=== PATIENT | male | born 1955 | race Caucasian/White ===

== ENCOUNTER → 2019-01-09 | Outpatient (CLI) | payer BC ==
[~2019-01-09] MED LIST: ASPI-586 PO; ASPI325T32 PO; CEPH-507 PO; CETI10CA PO; HYDR-3876 PO; IBUP200C PO; METAMUCIL POWD283 GM PO; NAPR-689 PO; OXYC-12 PO
--- NOTE | 2019-01-09 13:46 | Diagnostic Imaging Report ---
PROCEDURE: CT head without contrast. TECHNIQUE: Multiple contiguous axial images were obtained through the brain without the use of intravenous contrast. Auto Exposure Controls were utilized during the CT exam to meet ALARA standards for radiation dose reduction. INDICATION: Third nerve palsy and nausea. CT HEAD: CT images of the head were obtained. FINDINGS: Ventricles and sulci are within normal limits for size. There is no intracranial hemorrhage identified. There is no abnormal mass effect or shift of midline structures. IMPRESSION: Unremarkable CT of the head. Dictated by: Dictated on workstation # [id number]
--- NOTE | 2019-01-09 15:11 | Diagnostic Imaging Report ---
PROCEDURE: CT orbit without contrast. TECHNIQUE: Multiple contiguous axial images were obtained through the facial bones without the use of intravenous contrast. Auto Exposure Controls were utilized during the CT exam to meet ALARA standards for radiation dose reduction. INDICATION: Third nerve palsy. FINDINGS: There are no previous CT orbit examinations available for comparison. The CT head exam performed in conjunction with this study failed to show any sign of an acute intracranial abnormality or of an intracranial mass. The globes are symmetrical and within normal limits. The optic nerves and extraocular muscles also appear symmetrical. There is no evidence for retrobulbar mass. The sella is not enlarged. The paranasal sinuses where visualized are generally clear and well aerated. The mastoid air cells are unremarkable as well. IMPRESSION: 1. There is no acute abnormality of the orbits. There is no sign of a mass lesion either. 2. If clinical concern regarding an underlying abnormality persists and further imaging is desired, then MRI will be recommended. Dictated by: Dictated on workstation # [id number]
== END ==
LOC: RAD 12:54
PROVIDERS: ATTEND Optometrist
DX: H49.01 Third [oculomotor] nerve palsy, right eye (principal); H53.2 Diplopia; R11.0 Nausea
CPT/HCPCS: 36415; 70450; 70480; 83036; 85652

== ENCOUNTER 2019-02-21 14:45 | Inpatient (IN) | payer BC, MEDICARE ==
[~2019-02-21] VITALS: Ht 177.8 cm; Wt 84.0 kg
[2019-02-21] MEDS ORDERED: NITROGLYCERIN 0.4 MG SL TABS BTL 25'S SL ONE (14:54)
[2019-02-21] MEDS ORDERED: NITROGLYCERIN 0.4 MG SL TABS BTL 25'S SL PRN (15:00)
--- NOTE | 2019-02-21 15:02 | NUR ---
Pt reports pain is resolved with one nitro.
[2019-02-21] MEDS ORDERED: NS IV 1000 ML 1,000 ML ONE (15:05)
[2019-02-21] MEDS ORDERED: NS IV 1000 ML 1,000 ML IV SCH ×2 (15:06→16:45)
--- NOTE | 2019-02-21 15:06 | ED Chest Pain ---
General Chief Complaint: Chest Pain Stated Complaint: CHEST PAIN Source: patient, spouse Exam Limitations: no limitations History of Present Illness Date Seen by Provider: Feb 21, 2019 Time Seen by Provider: 14:48 Initial Comments Patient presents to ER by private conveyance with chief complaint of 30 minutes prior to arrival he began to experience some chest pain and pressure in his left chest radiating to his left shoulder and down his left arm as she was walking across campus. He has no history of coronary disease. He was told he has borderline cholesterol but does not take antiplatelet hyperlipidemia medications. He follows with Dr. Marta Sanchez. He does not smoke cigarettes use recreational drugs or drink alcohol. She's not had any fevers cough chills sweats nausea vomiting. 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 He does follow with an eye doctor and Dr. Strange has him scheduled next week or so for colonoscopy routine. He denies a history of diabetes or hypertension. He rates the pain about 3 or 4 out of 10 presently. The patient states he had aspirin 325 in his office so he took 2 of them when the pain started. Allergies and Home Medications Allergies Coded Allergies: No Known Drug Allergies (Unverified , 07/13/15) Home Medications Cephalexin 500 Mg Capsule, 500 MG PO BID Prescribed by: OLEG LEBLANC on 07/16/15 1026 Hydrocodone/Acetaminophen 1 Each Tablet, 1-2 TAB PO Q4H PRN for PAIN Prescribed by: OLEG LBELANC on 07/16/15 1026 Psyllium Seed/Aspartame 283 Gm Powder, 1 TSP PO DAILY, (Reported) Patient Home Medication List Home Medication List Reviewed: Yes Review of Systems Review of Systems Constitutional: No chills, No diaphoresis, No fever, No malaise EENTM: No Blurred Vision, No Double Vision Respiratory: Denies Cough, Denies Shortness of Air Cardiovascular: See HPI, Chest Pain; Denies Edema; Lightheadedness; Denies Palpitations, Denies Syncope Gastrointestinal: Denies Abdomen Distended, Denies Abdominal Pain Genitourinary: Denies Burning, Denies Discharge Musculoskeletal: No back pain, No joint pain Skin: No pruritus, No rash Psychiatric/Neurological: Denies Headache, Denies Numbness, Denies Paresthesia All Other Systems Reviewed Negative Unless Noted: Yes Past Cvdugsb-Xsnrpt-Kmumwr Hx Patient Social History Alcohol Use: Occasionally Uses Alcohol Beverage of Choice: Beer Recreational Drug Use: No Smoking Status: Never a Smoker 2nd Hand Smoke Exposure: No Past Medical History Surgeries: Yes (RIGHT INGUINAL HERNIA X2) Respiratory: No Cardiac: Yes High Cholesterol Neurological: No Reproductive Disorders: No Sexually Transmitted Disease: No HIV/AIDS: No Gastrointestinal: No Musculoskeletal: Yes (STRETCHING HELPS BACK PAIN) Chronic Back Pain Endocrine: No Loss of Vision: Bilateral Hearing Impairment: Denies Cancer: No Psychosocial: No Integumentary: No Blood Disorders: No Adverse Reaction/Blood Tranf: No Physical Exam Vital Signs Vital Signs - First Documented 02/21/19 14:48 Temp 36.3 Pulse 93 Resp 6 B/P (MAP) 138/90 (106) Pulse Ox 99 O2 Delivery Room Air Capillary Refill : Less Than 3 Seconds Height, Weight, BMI Height: 5'10.00" Weight: 187lbs. 0.0oz. 84.312122np; 31.11 BMI Method: General Appearance: No Apparent Distress, WD/WN HEENT: PERRL/EOMI, Pharynx Normal, Moist Mucous Membranes Neck: Full Range of Motion, Normal Inspection Respiratory: Chest Non Tender, Lungs Clear, Normal Breath Sounds, No Accessory Muscle Use, No Respiratory Distress Cardiovascular: Regular Rate, Rhythm, No Edema, Normal Peripheral Pulses Gastrointestinal: Normal Bowel Sounds, No Organomegaly, Non Tender, Soft Extremity: Normal Capillary Refill, Normal Inspection, No Pedal Edema Neurologic/Psychiatric: Alert, Oriented x3 Skin: Normal Color, Warm/Dry Progress/Results/Core Measures Results/Orders Lab Results Laboratory Tests Test 02/21/19 14:45 Range/Units White Blood Count 7.0 4.3-11.0 10^3/uL Red Blood Count 4.87 4.35-5.85 10^6/uL Hemoglobin 14.7 13.3-17.7 G/DL Hematocrit 43 40-54 % Mean Corpuscular Volume 88 80-99 FL Mean Corpuscular Hemoglobin 30 25-34 PG Mean Corpuscular Hemoglobin Concent 34 32-36 G/DL Red Cell Distribution Width 13.1 10.0-14.5 % Platelet Count 278 130-400 10^3/uL Mean Platelet Volume 10.2 7.4-10.4 FL Neutrophils (%) (Auto) 61 42-75 % Lymphocytes (%) (Auto) 27 12-44 % Monocytes (%) (Auto) 10 0-12 % Eosinophils (%) (Auto) 2 0-10 % Basophils (%) (Auto) 1 0-10 % Neutrophils # (Auto) 4.3 1.8-7.8 X 10^3 Lymphocytes # (Auto) 1.9 1.0-4.0 X 10^3 Monocytes # (Auto) 0.7 0.0-1.0 X 10^3 Eosinophils # (Auto) 0.1 0.0-0.3 10^3/uL Basophils # (Auto) 0.1 0.0-0.1 10^3/uL Prothrombin Time 13.0 12.2-14.7 SEC INR Comment 1.0 0.8-1.4 Activated Partial Thromboplast Time 31 24-35 SEC Sodium Level 139 135-145 MMOL/L Potassium Level 3.8 3.6-5.0 MMOL/L Chloride Level 103 98-107 MMOL/L Carbon Dioxide Level 25 21-32 MMOL/L Anion Gap 11 5-14 MMOL/L Blood Urea Nitrogen 9 7-18 MG/DL Creatinine 0.98 0.60-1.30 MG/DL Estimat Glomerular Filtration Rate > 60 BUN/Creatinine Ratio 9 Glucose Level 151 H 70-105 MG/DL Calcium Level 9.6 8.5-10.1 MG/DL Corrected Calcium 9.4 8.5-10.1 MG/DL Magnesium Level 1.9 1.6-2.4 MG/DL Total Bilirubin 0.6 0.1-1.0 MG/DL Aspartate Amino Transf (AST/SGOT) 20 5-34 U/L Alanine Aminotransferase (ALT/SGPT) 22 0-55 U/L Alkaline Phosphatase 53 40-136 U/L Myoglobin 153.4 H 10.0-92.0 NG/ML Troponin I 0.359 *H <0.028 NG/ML Total Protein 7.4 6.4-8.2 GM/DL Albumin 4.2 3.2-4.5 GM/DL My Orders Orders - PADILLA MEJIA Continuous Ekg Monitoring (02/21/19 14:46) Ekg Tracing (02/21/19 14:46) Nitroglycerin 0.4 Mg Btl 25's (Nitrostat (02/21/19 14:54) Cbc With Automated Diff (02/21/19 14:59) Magnesium (02/21/19 14:59) Chest 1 View, Ap/Pa Only (02/21/19 14:59) Cardiac Profile 1 (02/21/19 14:59) Comprehensive Metabolic Panel (02/21/19 14:59) Myoglobin Serum (02/21/19 14:59) Protime With Inr (02/21/19 14:59) Partial Thromboplastin Time (02/21/19 14:59) O2 (02/21/19 14:59) Lipid Panel (02/22/19 06:00) Ed Iv/Invasive Line Start (02/21/19 14:59) Nitroglycerin 0.4 Mg Btl 25's (Nitrostat (02/21/19 15:00) Ed Iv/Invasive Line Start (02/21/19 15:06) Ns Iv 1000 Ml (Sodium Chloride 0.9%) (02/21/19 15:06) Ns Iv 1000 Ml (Sodium Chloride 0.9%) (02/21/19 15:05) Medications Given in ED Current Medications Medications Dose Ordered Sig/Marina Route Start Time Stop Time Status Last Admin Dose Admin Nitroglycerin 0.4 mg STK-MED ONCE SL 02/21/19 14:54 02/21/19 14:56 DC 02/21/19 14:57 0.4 MG Vital Signs/I&O 02/21/19 02/21/19 14:48 14:48 Temp 36.3 Pulse 93 Resp 6 B/P (MAP) 138/90 (106) Pulse Ox 99 O2 Delivery Room Air Room Air Progress Progress Note : Time: 15:08 Progress Note Dose of nitroglycerin did take his chest pain away however he also dropped his blood pressure down significantly to 80/60. We'll give him a liter fluids and let them to cover. No EKG changes. He already received 2 aspirin at home. Initial ECG Impression Date: Feb 21, 2019 Initial ECG Impression Time: 14:52 Initial ECG Rate: 92 Initial ECG Rhythm: Normal Sinus Initial ECG Intervals: Normal Initial ECG Impression: Normal Initial ECG Comparisson: No Previous ECG Available Comment No clinically relevant ST elevation or depression. Diagnostic Imaging Diagonstic Imaging: Xray Plain Films/CT/US/NM/MRI: chest (1v) Comments NAME: DANIELLE SIMMS MED REC#: [id number] PT STATUS: REG ER : 1955 PHYSICIAN: PADILLA MEJIA MD ADMIT DATE: 02/21/19/ER Draft POSDate of Exam:02/21/19 CHEST 1 VIEW, AP/PA ONLY PATIENT HISTORY: Chest pain. TECHNIQUE: Single frontal view of the chest. COMPARISON: None. FINDINGS: The lung volumes are normal. No focal consolidation is seen. No large pleural effusion or pneumothorax is seen. The cardiomediastinal silhouette is normal in size and contour. No acute osseous abnormality is seen. IMPRESSION: No acute pulmonary abnormality seen. Dictated on workstation # [id number] Dict: 02/21/19 1523 Trans: 02/21/19 1524 [id number] Interpreted by: ANN PATTEN MD Electronically signed by: Reviewed: Reviewed by Me Departure Communication (Admissions) Time/Spoke to Admitting Phy: 15:48 Discussed lab imaging findings EKG with Dr. Earl and he agrees to observe the patient. Time/Spoke to Consulting Phy: 15:[address] Jimenez and he says he'll come by and see the patient later Tonight or tomorrow. He would like it single dose of Lovenox at this time. Impression Primary Impression: Non-STEMI (non-ST elevated myocardial infarction) Disposition: ADMITTED INPATIENT Condition: Stable Admissions Decision to Admit Reason: Admit from ER (General) Decision to Admit/Date: Feb 21, 2019 Time/Decision to Admit Time: 15:30 Departure-Patient Inst. Referrals: MARTA SANCHEZ MD (PCP/Family) Primary Care Physician PADILLA MEJIA Feb 21, 2019 15:06 POS
[2019-02-21 15:10] LABS: BASOPHILS # (AUTO) 0.1 10^3/uL (0.0-0.1); BASOPHILS % (AUTO) 1 % (0-10); EOSINOPHILS # (AUTO) 0.1 10^3/uL (0.0-0.3); EOSINOPHILS % (AUTO) 2 % (0-10); HEMATOCRIT 43 % (40-54); HEMOGLOBIN 14.7 G/DL (13.3-17.7); LYMPHOCYTES # (AUTO) 1.9 X 10^3 (1.0-4.0); LYMPHOCYTES % (AUTO) 27 % (12-44); MEAN CORPUSCULAR HEMOGLOBIN 30 PG (25-34); MEAN CORPUSCULAR HGB CONC 34 G/DL (32-36); MEAN CORPUSCULAR VOLUME 88 FL (80-99); MEAN PLATELET VOLUME 10.2 FL (7.4-10.4); MONOCYTES # (AUTO) 0.7 X 10^3 (0.0-1.0); MONOCYTES % (AUTO) 10 % (0-12); NEUTROPHILS # (AUTO) 4.3 X 10^3 (1.8-7.8); NEUTROPHILS % (AUTO) 61 % (42-75); PLATELET COUNT 278 10^3/uL (130-400); RED CELL DISTRIBUTION WIDTH 13.1 % (10.0-14.5)
--- NOTE | 2019-02-21 15:25 | Diagnostic Imaging Report ---
PATIENT HISTORY: Chest pain. TECHNIQUE: Single frontal view of the chest. COMPARISON: None. FINDINGS: The lung volumes are normal. No focal consolidation is seen. No large pleural effusion or pneumothorax is seen. The cardiomediastinal silhouette is normal in size and contour. No acute osseous abnormality is seen. IMPRESSION: No acute pulmonary abnormality seen. Dictated by: Dictated on workstation # [id number]
[2019-02-21 15:27] LABS: ALANINE AMINOTRANSFERASE 22 U/L (0-55); ALBUMIN 4.2 GM/DL (3.2-4.5); ALKALINE PHOSPHATASE 53 U/L (40-136); BILIRUBIN,TOTAL 0.6 MG/DL (0.1-1.0); BUN/CREATININE RATIO 9; CALCIUM 9.6 MG/DL (8.5-10.1); CARBON DIOXIDE 25 MMOL/L (21-32); CHLORIDE 103 MMOL/L (98-107); CREATININE SERUM 0.98 MG/DL (0.60-1.30); GFR ESTIMATED > 60; GLUCOSE 151 MG/DL (70-105); MAGNESIUM 1.9 MG/DL (1.6-2.4); POTASSIUM 3.8 MMOL/L (3.6-5.0); SODIUM 139 MMOL/L (135-145); TOTAL PROTEIN 7.4 GM/DL (6.4-8.2)
[2019-02-21] MEDS ORDERED: ENOXAPARIN 100 MG/1 ML (LOVENOX) SYR SC ONE (16:00)
--- NOTE | 2019-02-21 16:44 | Consultation-Cardiology ---
HPI-Cardiology Cardiology Consultation Date of Consultation 02/21/19 Date of Admission Time Seen by Provider: 16:40 Indication: chest pain HPI 63 years old gentleman with no significant past history, had borderline hyperlipidemia, started to have chest pain described it as dull in nature in the left side of his chest radiating to the left arm, took aspirin at home then came to the emergency room, pain relieved with one sublingual nitroglycerin, he is currently laying down in bed, denied any active pain, no similar episodes in the past. No palpitation, no syncope or near syncopal episodes. No claudications. Home Medications & Allergies Allergies: Coded Allergies: No Known Drug Allergies (Unverified , 07/13/15) Home Medication List Reviewed: Yes Take rxjc-jda-wovokbv medications only JQT-Mxobim-Keqqjn Hx Patient Social History Marital Status: Employed/Student: employed Alcohol Use: Occasionally Uses Recreational Drug Use: No Smoking Status: Never a Smoker Former smoker/When Quit: Sep 10, 1969 2nd Hand Smoke Exposure: No Recent Foreign Travel: No Recent Infectious Disease Expo: No Past Medical History No known past medical history Family Medical History Family Medical Hx Noncontributory Review of Systems-General Review of Systems Constitutional: see HPI; No chills, No diaphoresis, No fever, No malaise EENTM: see HPI, no symptoms reported Respiratory: see HPI; No cough, No dyspnea on exertion, No hemoptysis, No orthopnea, No phlegm, No short of breath, No stridor, No wheezing, No other Cardiovascular: see HPI, chest pain; No edema, No Hx of Intervention, No pal pitations, No syncope, No vascular heart diseas, No other Gastrointestinal: no symptoms reported, see HPI Genitourinary: no symptoms reported, see HPI Musculoskeletal: see HPI; No back pain, No joint pain Skin: see HPI; No pruritus, No rash Psychiatric/Neurological: See HPI; Denies Headache, Denies Numbness, Denies Paresthesia All Other Systems Reviewed Negative Unless Noted: Yes Reviewed Test Results Reviewed Test Results Lab Laboratory Tests Test 02/21/19 14:45 Range/Units White Blood Count 7.0 4.3-11.0 10^3/uL Red Blood Count 4.87 4.35-5.85 10^6/uL Hemoglobin 14.7 13.3-17.7 G/DL Hematocrit 43 40-54 % Mean Corpuscular Volume 88 80-99 FL Mean Corpuscular Hemoglobin 30 25-34 PG Mean Corpuscular Hemoglobin Concent 34 32-36 G/DL Red Cell Distribution Width 13.1 10.0-14.5 % Platelet Count 278 130-400 10^3/uL Mean Platelet Volume 10.2 7.4-10.4 FL Neutrophils (%) (Auto) 61 42-75 % Lymphocytes (%) (Auto) 27 12-44 % Monocytes (%) (Auto) 10 0-12 % Eosinophils (%) (Auto) 2 0-10 % Basophils (%) (Auto) 1 0-10 % Neutrophils # (Auto) 4.3 1.8-7.8 X 10^3 Lymphocytes # (Auto) 1.9 1.0-4.0 X 10^3 Monocytes # (Auto) 0.7 0.0-1.0 X 10^3 Eosinophils # (Auto) 0.1 0.0-0.3 10^3/uL Basophils # (Auto) 0.1 0.0-0.1 10^3/uL Prothrombin Time 13.0 12.2-14.7 SEC INR Comment 1.0 0.8-1.4 Activated Partial Thromboplast Time 31 24-35 SEC Sodium Level 139 135-145 MMOL/L Potassium Level 3.8 3.6-5.0 MMOL/L Chloride Level 103 98-107 MMOL/L Carbon Dioxide Level 25 21-32 MMOL/L Anion Gap 11 5-14 MMOL/L Blood Urea Nitrogen 9 7-18 MG/DL Creatinine 0.98 0.60-1.30 MG/DL Estimat Glomerular Filtration Rate > 60 BUN/Creatinine Ratio 9 Glucose Level 151 H 70-105 MG/DL Calcium Level 9.6 8.5-10.1 MG/DL Corrected Calcium 9.4 8.5-10.1 MG/DL Magnesium Level 1.9 1.6-2.4 MG/DL Total Bilirubin 0.6 0.1-1.0 MG/DL Aspartate Amino Transf (AST/SGOT) 20 5-34 U/L Alanine Aminotransferase (ALT/SGPT) 22 0-55 U/L Alkaline Phosphatase 53 40-136 U/L Myoglobin 153.4 H 10.0-92.0 NG/ML Troponin I 0.359 *H <0.028 NG/ML Total Protein 7.4 6.4-8.2 GM/DL Albumin 4.2 3.2-4.5 GM/DL Physical Exam Physical Exam Vital Signs Vital Signs - First Documented 02/21/19 14:48 Temp 36.3 Pulse 93 Resp 6 B/P (MAP) 138/90 (106) Pulse Ox 99 O2 Delivery Room Air Capillary Refill : Less Than 3 Seconds Height, Weight, BMI Height: 5'10.00" Weight: 187lbs. 0.0oz. 84.589870ej; 26.00 BMI Method: General Appearance: No Apparent Distress, WD/WN Eyes: Bilateral Eye Normal Inspection, Bilateral Eye PERRL, Bilateral Eye EOMI HEENT: PERRL/EOMI, Pharynx Normal, Moist Mucous Membranes Neck: Full Range of Motion, Normal Inspection Respiratory: Chest Non Tender, Lungs Clear, Normal Breath Sounds, No Accessory Muscle Use, No Respiratory Distress Cardiovascular: Regular Rate, Rhythm, No Edema, No Gallop, No Murmur, Normal Peripheral Pulses Gastrointestinal: Normal Bowel Sounds, No Organomegaly, Non Tender, Soft Back: Normal Inspection, No CVA Tenderness, No Vertebral Tenderness Extremity: Normal Capillary Refill, Normal Inspection, No Pedal Edema Neurologic/Psychiatric: Alert, Oriented x3 Skin: Normal Color, Warm/Dry Lymphatic: No Adenopathy A/P-Cardiology Admission Diagnosis Chest pain Non-ST elevation myocardial infarction Coronary artery disease Hyperlipidemia Assessment/Plan Chest pain, non-ST elevation myocardial infarction, relieved with one sublingual nitroglycerin, feeling better at this time. I will continue monitoring and start IV fluid, possible cardiac catheterization in the morning Coronary artery disease, mild elevation in troponin, continue to monitor the trend, possible cardiac catheterization Questionable hyperlipidemia I will evaluate lipid profile Hospital course: Patient was monitored, had transient episode of hypotension, second troponin was 27, I decided to proceed with cardiac catheterization which was carried out showing ostial LAD thrombus with severe mid LAD stenosis, involving the ramus intermedius, I discussed the management plan with Dr. Dodson at [facility] who accepted the patient and recommended placement of intra-aortic balloon pump. Patient was started on heparin drip is currently stable, heart rate and blood pressure are stable. I will arrange for the transfer. Final diagnosis Non-ST elevation myocardial infarction Coronary artery disease Hypotension, not in shock Hyperlipidemia LOY SHIRLEY MD Feb 21, 2019 16:44 POS
[2019-02-21 17:30] VITALS: BP 150/98
[2019-02-21] MEDS ORDERED: ONDANSETRON 4 MG/2 ML (SDV) Z0FRAN IV PRN (17:30)
[2019-02-21] MEDS ORDERED: morphine INJ 4 MG/ML 1 ML (VIAL/SYRINGE) IV PRN (17:30)
[2019-02-21] MEDS ORDERED: CATHETER FLUSH 10 ML SYR IV PRN (17:30)
[2019-02-21 19:00] VITALS: BP 136/84
[2019-02-21 20:00] VITALS: BP 137/108
[2019-02-21 22:00] VITALS: BP 101/68
[2019-02-21 23:00] VITALS: BP 83/54
[2019-02-22] VITALS: BP 88/64
[2019-02-22 01:00] VITALS: BP 93/60
--- NOTE | 2019-02-22 01:14 | NUR ---
CONTACTED DR. SHIRLEY D/T HYPOTENSION. NEW ORDERS RECEIVED AT THIS TIME.
[2019-02-22] MEDS ORDERED: NS IV 1000 ML 1,000 ML IV ONE (01:15)
--- NOTE | 2019-02-22 01:46 | NUR ---
2149--PT HAD CRITICAL RESULT OF TROPONIN. [facility] NOTIFIED- NO NEW ORDERS 57-- CONTACTED DR. SHIRLEY D/T HYPOTENSION - NEW ORDERS RECEIVED 14-- [facility] CONTACTED THIS RN AND GAVE ORDER TO RUN EKG 129-- RESULTS OF EKG SENT TO DR. SHIRLEY. 130-- [facility] CONTACTED THIS RN TO HAVE HOUSE SUP INITIATE CATH TEAM. 0145-- CONSENT READ BY RN AND SIGNED BY PATIENT.
[2019-02-22] MEDS ORDERED: LIDOCAINE 1% INJ 20 ML 20 ML VIAL ONE ×2 (01:53→03:15)
[2019-02-22] MEDS ORDERED: HEParin (CATH LAB) 2,000 ML IV ONE (01:54)
[2019-02-22 02:00] VITALS: BP 139/104
--- NOTE | 2019-02-22 02:11 | NUR ---
0200--[facility] AT BEDSIDE. PT'S QUESTIONS ANSWERED AND STATES HE HAS NO FURTHER QUESTIONS/CONCERNS. 0210-- CATH TEAM IN TO TAKE PT TO [facility].
[2019-02-22] MEDS ORDERED: fentaNYL INJECTION 100 MCG/2 ML AMP ONE (02:14)
[2019-02-22] MEDS ORDERED: MIDAZOLAM 5 MG/5 ML (VERSED) VIAL ONE (02:14)
--- NOTE | 2019-02-22 02:15 | Cardiology Progress Note ---
Subjective Date Seen by Provider: Feb 22, 2019 Time Seen by Provider: 02:13 Subjective/Events-last exam patient is laying down in bed, denied any active chest pain, had transient episode of hypotension resolved with IV fluid Review of Systems General: No Chills, No Night Sweats, No Fatigue, No Malaise, No Appetite, No Other HEENT: No Head Aches, No Visual Changes, No Eye Pain, No Ear Pain, No Dysphasia, No Sinus Congestion, No Post Nasal Drip, No Sore Throat, No Other Pulmonary: No Dyspnea, No Cough, No Pleuritic Chest Pain, No Other Cardiovascular: No: Chest Pain, Palpitations, Orthopnea, Paroxysmal Noc. Dyspnea, Edema, Lt Headedness, Other Objective-Cardiology Exam Last Set of Vital Signs Vital Signs 02/21/19 02/21/19 02/21/19 02/22/19 17:30 20:00 21:00 01:00 Temp 36.8 Pulse 79 Resp 13 B/P (MAP) 150/98 (115) Pulse Ox 98 O2 Delivery Room Air Capillary Refill : Less Than 3 Seconds I&O Intake and Output 02/22/19 00:00 Intake Total 1120 ml Balance 1120 ml Intake Oral 120 ml IV Total 1000 ml # Voids 2 Daily Weight Change No General: Alert, Oriented X3, Cooperative HEENT: Atraumatic, PERRLA Neck: Supple, No JVD, No Thyromegaly Lungs: Clear to Auscultation, Normal Air Movement Heart: Regular Rate, Normal S1, Normal S2, No Murmurs Abdomen: Normal Bowel Sounds, Soft, No Tenderness, No Hepatosplenomegaly, No Masses Extremities: No Clubbing, No Cyanosis, No Edema, Normal Pulses, No Tenderness/Swelling Skin: No Rashes, No Breakdown, No Significant Lesion Neuro: Normal Gait, Normal Speech, Strength at 5/5 X4 Ext, Normal Tone, Sensation Intact Psych/Mental Status: Mental Status NL, Mood NL Results Lab Laboratory Tests 02/21/19 14:45 A/P-Cardiology Admission Diagnosis Chest pain Non-ST elevation myocardial infarction Coronary artery disease Hyperlipidemia Assessment/Plan Chest pain, non-ST elevation myocardial infarction, relieved with one sublingual nitroglycerin, denied any active chest pain, had significant troponin elevation, minimal EKG changes this morning, I will proceed with cardiac catheterization possible PTCA Coronary artery disease, second set of troponin is elevated, planning to proceed with cardiac catheterization Transient hypotension responded to IV fluid challenge, continue to monitor blood pressure Questionable hyperlipidemia I will evaluate lipid profile Clinical Quality Measures DVT/VTE Risk/Contraindication: Risk Factor Score Per Nursin RFS Level Per Nursing on Admit: 2=Moderate LOY SHIRLEY MD Feb 22, 2019 02:15 POS
--- NOTE | 2019-02-22 02:16 | Cardiac Procedure Note-CS/ASA ---
Pre-Procedure Note Pre-Op Procedure Note H&P Reviewed The H&P was reviewed, patient examined and no changes noted. Date H&P Reviewed: Feb 22, 2019 Time H&P Reviewed: 02:15 Conscious Sedation Pre-Proced Time 02:15 ASA Score 3 For ASA 3 and 4: Consider anesthesia and medical clearance. Also, for patients with a history of failed moderate sedation consider anesthesia. Airway Lungs Heart ASA score ASA 1: a normal healthy patient ASA 2: a patient with a mild systemic disease (mid diabetes, controlled hypertension, obesity x ASA 3: a patient with a severe systemic disease that limits activity (angina, COPD, prior Myocardial infarction) ASA 4: a patient with an incapacitating disease that is a constant threat to life (CHF, renal failure) ASA 5: a moribund patient not expected to survive 24 hrs. (ruptured aneurysm) ASA 6: a declared brain- patient whose organs are being harvested. For emergent operations, add the letter E after the classification Mallampati Classification Grade 3 Sedation Plan Analgesia, Amnesia, Plan communicated to team members, Discussed options with patient/fam, Discussed risks with patient/fam The patient is an appropriate candidate to undergo the planned procedure, sedation, and anesthesia. The patient immediately re-assessed prior to indication. LOY SHIRLEY MD Feb 22, 2019 02:16 POS
[2019-02-22] MEDS ORDERED: HEParin 1000 UNIT/ML (10ML VIAL) FOR BOLUS ONE (02:20)
[2019-02-22] MEDS ORDERED: NITRO DRIP 25000 MCG/D5W 0 ML IV ONE (02:20)
[2019-02-22] MEDS ORDERED: EPTIFIBATIDE BOLUS 0 ML IV ONE (02:30)
[2019-02-22] MEDS ORDERED: HEParin DRIP 25000 UNIT/500ML 500 ML IV ONE (03:02)
[2019-02-22] MEDS ORDERED: NS IV 1000 ML 1,000 ML IV SCH (03:07)
[2019-02-22] MEDS ORDERED: PATIENT MAY USE OWN MEDS, ALL PO SCH (03:15)
--- NOTE | 2019-02-22 03:15 | Cardiac Cath Report ---
Cardiac Cath Report Physician (s)/Spool Winder (s) Physician LOY SHIRLEY MD Pre-Procedure Diagnosis Pre-Procedure Diagnosis: Coronary artery disease, non-ST elevation [place] Post-Procedure Note Procedure Start Date: Feb 22, 2019 Name of Procedure: Left heart Catheterization Aortic arch angiogram Intra-aortic balloon pump placement Findings/Procedure Note PROCEDURE NOTE: 63 years old gentleman with no significant past medical history admitted through the emergency room with acute chest pain had mild elevation in troponin, pain relieved with one sublingual nitroglycerin. Has been asymptomatic, second troponin was significantly elevated, had transient episode of hypotension that improved with IV fluid challenge I decided to proceed with cardiac catheterization possible PTCA. After explaining the procedure to the patient, all pros and cons were explained, all questions were answered. The patient signed the consent and then he was placed on the cardiac catheterization laboratory. Groin was prepped SL fashion local anesthesia was used. Sheath placed in the Right femoral artery. Karen right and left catheter were used to access the coronary system. Pigtail was used to access the left ventricular cavity. Left ventriculogram was done Aortic arch angiogram was done Patient was given bolus of heparin, sheath was exchanged and intra-aortic balloon pump was placed At the end of the procedure the sheath was sutured in place FINDINGS: Hemodynamics LV 104/27, end-diastolic pressure of 27 Aorta 108/71 mean of 87 ANATOMY: Left Main is moderate in size with no significant obstructive disease Left Anterior Descending has ostial subtotal occlusion with a thrombus, midportion has severe stenosis Left Circumflex is moderate in size with no obstructive disease Ramus intermedius has no obstructive disease, very close to the thrombus in the LAD Right Coronory Artery is moderate in size with no obstructive disease LV Gram is prominent with hypokinesia at the anterior wall estimate ejection fraction 40 percent Aorta evaluation done with aortic arch angiogram which showed slightly prominent arch, normal origin of the innominate artery, left carotid and left subclavian artery, no dissection or aneurysm Intra-aortic balloon pump was placed with no complications sutured in place, fluoroscopy showed good position CONCLUSION: 1. Subtotal occlusion at the ostium of the LAD extending from the distal left main with a thrombus, severe stenosis at the mid LAD 2. Otherwise mild coronary artery disease 3. Prominent left ventricle with hypokinesia of the anterior wall estimated ejection fraction 40 percent 4. Prominent aortic arch, no dissection or aneurysm 5. Successful intra-aortic balloon pump placement DISCUSSION AND RECOMMENDATION: Patient can be considered for high risk intervention to the ostium of the LAD, it might compromise the ramus intermedius or the flow in the LAD, started on heparin drip, it could help with the thrombus, discussed the management plan with Dr. Dodson who accepted the patient, patient will be transferred to [facility] Anesthesia Type: Conscious Sedation Estimated blood loss (mL): 25 ml Contrast Amount: 71 ml Total Radiation Dose: 422 mGy Post-Procedure Diagnosis Post-operative diagnosis: Non-ST elevation myocardial infarction Coronary artery disease Hypotension Hyperlipidemia LOY SHIRLEY MD Feb 22, 2019 03:14 POS
--- NOTE | 2019-02-22 03:49 | NUR ---
PT UPDATED ON STATUS OF PATIENT BY OPERATING ENGINEER. UP TO ICU AT 0335 TO GATHER PTS BELONGINGS. CASPER MET PT'S AT [facility] AND UPDATED AND EXPLAINED TO HER THE PROCEDURE THAT TOOK PLACE AND WHY THE PT WAS BEING TRANSFERRED. REPORT CALLED TO LETIC[facility] AT [id number]
[2019-02-22] MEDS ORDERED: ASPIRIN E.C. 81 MG (ECOTRIN) TAB PO SCH ×2 (09:00)
== END 2019-02-22 17:25 | disposition short-term general hospital (02) | DRG 272 ==
LOC: EDUNIT# 14:45 → ER 14:46 → UNDOADMOB 15:48 → ICU 15:48 → INTOOBSV 17:25 → OBSVTOIN 17:25 → UNDODISOB 02-22 02:10
PROVIDERS: ADMIT Internal Medicine; ATTEND Internal Medicine
PROC: 5A02210 Assistance with Cardiac Output using Balloon Pump, Continuous (ICD-10-PCS; principal; 2019-02-22)
PROC: 4A023N7 Measurement of Cardiac Sampling and Pressure, Left Heart, Percutaneous Approach (ICD-10-PCS; 2019-02-22)
PROC: B2111ZZ Fluoroscopy of Multiple Coronary Arteries using Low Osmolar Contrast (ICD-10-PCS; 2019-02-22)
PROC: B2151ZZ Fluoroscopy of Left Heart using Low Osmolar Contrast (ICD-10-PCS; 2019-02-22)
PROC: B3101ZZ Fluoroscopy of Thoracic Aorta using Low Osmolar Contrast (ICD-10-PCS; 2019-02-22)
DX: I21.4 Non-ST elevation (NSTEMI) myocardial infarction (principal); I25.10 Atherosclerotic heart disease of native coronary artery without angina pectoris; E78.5 Hyperlipidemia, unspecified; I95.9 Hypotension, unspecified; E78.00 Pure hypercholesterolemia, unspecified; M54.9 Dorsalgia, unspecified
CPT/HCPCS: 33967; 36415; 71045; 80053; 83735; 83874; 84484; 85025; 85610; 85730; 93005; 93458; 96360; 96372

== ENCOUNTER 2019-05-09 11:09 | Outpatient (RCR) | payer BC, MEDICARE | END 2019-07-03 | disposition home or self-care (01) | LOC: CR 11:09 | PROVIDERS: ATTEND Thoracic Surgery (Cardiothoracic Vascular Surgery) | DX: Z48.812 Encounter for surgical aftercare following surgery on the circulatory system (principal); Z95.1 Presence of aortocoronary bypass graft | CPT/HCPCS: 93798 ==

== ENCOUNTER → 2019-08-21 | Outpatient (CLI) | payer BC | LOC: CARD 11:36 | PROVIDERS: ATTEND Internal Medicine Cardiovascular Disease | DX: I07.1 Rheumatic tricuspid insufficiency (principal); I25.10 Atherosclerotic heart disease of native coronary artery without angina pectoris; E78.2 Mixed hyperlipidemia; I10 Essential (primary) hypertension | CPT/HCPCS: 93306 ==

== ENCOUNTER → 2020-06-30 | Outpatient (CLI) | payer BC ==
[~2020-06-30] MED LIST changes: +CATHETER FLUSH 10 ML SYR IV PRN; +HOLD METFORMIN - RECEIVED CONTRAST 20 ML VIAL IV SCH; -HYDR-3876 PO; +HYDR-3920 PO; +IOHEXOL 350 MG/ML 100 ML (OMNIPAQUE 350) VIAL IV ONE; +NS 100 ML (IVPB) BAG IV ONE
[2020-06-30 14:10] LABS: CREATININE SERUM 0.78 MG/DL (0.60-1.30)
--- NOTE | 2020-06-30 14:43 | Diagnostic Imaging Report ---
CLINICAL INDICATION: Patient with lightheadedness for 2 weeks and hypertension. EXAM: Axial CT scan of the brain without and with 80 mL of Omnipaque IV contrast with coronal and sagittal reformatted images. Auto Exposure Controls were utilized during the CT exam to meet ALARA standards for radiation dose reduction. COMPARISON: Head CT without contrast dated 01/09/2019. FINDINGS: There is no evidence of acute cerebral infarct, intracranial hemorrhage, or gross mass effect. There is no abnormal IV contrast enhancement. The brain parenchymal volume appears appropriate for patient's age. There is normal duke-white matter distinction. There is no significant midline shift or herniation. The [place] vascular structures show no gross abnormality as visualized. The pituitary gland, sella, and suprasellar regions are unremarkable as visualized. Dural venous sinuses are unremarkable. There is no evidence of hydrocephalus. The basal cisterns are unremarkable. The skull, extracranial soft tissue, and orbits are unremarkable. The paranasal sinuses are unremarkable. Temporal bones show no significant abnormality. IMPRESSION: Unremarkable CT scan of the brain for age. Dictated by: Dictated on workstation # [id number]
== END ==
LOC: CARD 13:18
PROVIDERS: ATTEND Internal Medicine Cardiovascular Disease
DX: I10 Essential (primary) hypertension (principal)
CPT/HCPCS: 36415; 70470; 82565; 84520; 93306

== ENCOUNTER → 2020-09-15 | Outpatient (CLI) | payer BC ==
[~2020-09-15] VITALS: Ht 177 cm; Wt 77.0 kg
[~2020-09-15] MED LIST changes: -HOLD METFORMIN - RECEIVED CONTRAST 20 ML VIAL IV SCH; -IOHEXOL 350 MG/ML 100 ML (OMNIPAQUE 350) VIAL IV ONE; -NS 100 ML (IVPB) BAG IV ONE
[2020-09-15 13:05] VITALS: BP 115/80
--- NOTE | 2020-09-15 15:43 | Cardiology Stress Test Report ---
Stress Test Report Date of Procedure/Referring: Date of Procedure: Sep 15, 2020 Esther Lacey Admitting Physician Marta Sanchez MD Indications: CAD Baseline Heart Rate: 68 Baseline Blood Pressure: Blood Pressure Systolic: 115 Blood Pressure Diastolic: 80 Vital Signs Date Time Temp Pulse Resp B/P (MAP) Pulse Ox O2 Delivery O2 Flow Rate FiO2 09/15/20 13:05 80 115/80 (92) 97 Baseline Vital Signs Vital Signs Date Time Temp Pulse Resp B/P (MAP) Pulse Ox O2 Delivery O2 Flow Rate FiO2 09/15/20 13:05 80 115/80 (92) 97 Baseline EKG: Baseline EKG: NSR Summary: After explaining the procedure and details to the patient, he signed the consent and was brought to the stress nuclear laboratory. Patient exercised on standard Stanford protocol, EKG, heart rate and blood pressure were monitored continuously, resting and stress doses of radio tracer were injected, imaging was acquired and reviewed in the short axis, horizontal long a xis and vertical long axis views Patient was able to exercise for a total of 8.30 minutes on Stanford protocol, METs 10.3 Maximum heart rate 137 Maximum blood pressure 179/77 Stress EKG, Minimal nondiagnostic changes Recovery EKG, Return to baseline TID: 0.96 SSS: 5 SDS: 3 EF: 62 Conclusion: 1. Good exercise tolerance for 8-minute 30 seconds on standard Stanford protocol, 10.3 METS achieving 89% of maximal expected heart rate 2. Appropriate heart rate response to exercise with hypertensive response to exercise, peak blood pressure 179/77 return to baseline during recovery 3. Minimal nondiagnostic EKG changes with exercise return to baseline during recovery 4. Mild ischemia involving the anteroapical and true apex of the left ventricle 5. Normal left ventricular size, EF 62% LOY SHIRLEY MD Sep 15, 2020 15:43
== END ==
LOC: CARD 11:45
PROVIDERS: ATTEND Physician Assistant
DX: I25.10 Atherosclerotic heart disease of native coronary artery without angina pectoris (principal)
CPT/HCPCS: 78452; 93017; A9502

== ENCOUNTER 2020-09-24 11:00 | Day surgery (SDC) | payer BC ==
[~2020-09-24] VITALS: Ht 177.8 cm; Wt 76.2 kg
[2020-09-24] VITALS (8 sets, daily range): BP systolic 113–142; BP diastolic 73–93
--- NOTE | 2020-09-24 09:51 | Diagnostic Imaging Report ---
Indication: Abnormal stress test COMPARISON: 02/21/2019 TECHNIQUE: Single frontal radiograph of the chest dated 09/24/2020. FINDINGS: Postsurgical changes of a CABG are identified, new since 2018. The cardiac silhouette is within normal limits in size. No significant pulmonary vascular congestion. The lungs are clear of focal pulmonary opacity. No pleural effusion. No pneumothorax. No acute osseous abnormality. IMPRESSION: No acute cardiopulmonary abnormality with interval postsurgical changes of a CABG when compared to February 2019. Dictated by: Dictated on workstation # [id number]
[2020-09-24 09:58] LABS: HEMATOCRIT 42 % (40-54); HEMOGLOBIN 14.5 g/dL (13.3-17.7); MEAN CORPUSCULAR HEMOGLOBIN 31 pg (25-34); MEAN CORPUSCULAR HGB CONC 34 g/dL (32-36); MEAN CORPUSCULAR VOLUME 89 fL (80-99); MEAN PLATELET VOLUME 10.7 fL (9.0-12.2); PLATELET COUNT 237 10^3/uL (130-400); WHITE BLOOD COUNT 7.4 10^3/uL (4.3-11.0)
[2020-09-24 10:13] LABS: INR 0.9 (0.8-1.4); PROTHROMBIN TIME PATIENT 12.9 SEC (12.2-14.7)
[2020-09-24 10:22] LABS: ALANINE AMINOTRANSFERASE 22 U/L (0-55); ALBUMIN 3.8 GM/DL (3.2-4.5); ALKALINE PHOSPHATASE 54 U/L (40-136); BILIRUBIN,TOTAL 1.1 MG/DL (0.1-1.0); BUN/CREATININE RATIO 14; CALCIUM 9.5 MG/DL (8.5-10.1); CARBON DIOXIDE 25 MMOL/L (21-32); CHLORIDE 106 MMOL/L (98-107); CHOLESTEROL 147 MG/DL (< 200); CREATININE SERUM 0.84 MG/DL (0.60-1.30); GFR ESTIMATED > 60; GLUCOSE 99 MG/DL (70-105); HDL CHOLESTEROL 57 MG/DL (40-60); POTASSIUM 3.8 MMOL/L (3.6-5.0); SODIUM 140 MMOL/L (135-145); TOTAL PROTEIN 6.9 GM/DL (6.4-8.2); TRIGLYCERIDES 60 MG/DL (<150); VLDL CHOLESTEROL 12 MG/DL (5-40)
[~2020-09-24 11:00] MED LIST changes: +ACET325C7 PO; +ASPI-1238 PO; +ATOR40TA70 PO; +CARV3.122 PO; -CATHETER FLUSH 10 ML SYR IV PRN; +CETI10TA23 PO; +FLAX10004 PO; +NAPR-1070 PO; +NS IV 1000 ML 1,000 ML IV SCH; +OMEG-154 PO; +UBID300C PO
[2020-09-24] MEDS ORDERED: LIDOCAINE 1% INJ 20 ML 20 ML VIAL ONE (11:08)
[2020-09-24] MEDS ORDERED: HEParin (CATH LAB) 2,000 ML IV ONE (11:08)
[2020-09-24] MEDS ORDERED: NORMAL SALINE 250 ML ONE (11:08)
--- NOTE | 2020-09-24 11:24 | Conscious Sedation/ASA ---
Conscious Sedation Pre-Proced Time 11:24 ASA Score 3 For ASA 3 and 4: Consider anesthesia and medical clearance. Also, for patients with a history of failed moderate sedation consider anesthesia. Airway Lungs Heart ASA score ASA 1: a normal healthy patient ASA 2: a patient with a mild systemic disease (mid diabetes, controlled hypertension, obesity x ASA 3: a patient with a severe systemic disease that limits activity (angina, COPD, prior Myocardial infarction) ASA 4: a patient with an incapacitating disease that is a constant threat to life (CHF, renal failure) ASA 5: a moribund patient not expected to survive 24 hrs. (ruptured aneurysm) ASA 6: a declared brain- patient whose organs are being harvested. For emergent operations, add the letter E after the classification Mallampati Classification Grade 3 Sedation Plan Analgesia, Amnesia, Plan communicated to team members, Discussed options with patient/fam, Discussed risks with patient/fam The patient is an appropriate candidate to undergo the planned procedure, sedation, and anesthesia. The patient immediately re-assessed prior to indication. LOY SHIRLEY MD Sep 24, 2020 11:24
[2020-09-24] MEDS ORDERED: MIDAZOLAM 5 MG/5 ML (VERSED) VIAL ONE (11:25)
[2020-09-24] MEDS ORDERED: fentaNYL INJ 100 MCG/2 ML AMP ONE (11:25)
[2020-09-24] MEDS ORDERED: NS IV 1000 ML 1,000 ML ONE (12:00)
--- NOTE | 2020-09-24 12:29 | Discharge Inst-Post CATH ---
Discharge Inst-CATH/EP Problems Reviewed?: Yes Post Cardiac Cath/EP D/C Inst Follow Up/Plan Appointment with Dr. Jimenez's office in 4 weeks <b>CARDIAC CATH/EP PROCEDURE DISCHARGE INSTRUCTIONS</b> ACTIVITY * Go Home directly and rest. * Limit activity of the leg (or wrist if it was used) for 7 days including aerobics, swimming, jogging, bicycling, etc. * Restrict stair-climbing for 7 days if possible, if not, climb up with your non-cath leg, then bring together on the same step. * Avoid lifting, pushing, pulling or excessive movement of the affected extremity for 7 days. * Customary sexual activity may be resumed after 2 days-use caution not to use a position that strains or causes pain to the affected extremity. * No driving for 24 hours. * NO SMOKING. * Avoid straining for bowel movements for 7 days. * Gentle walking on level ground is allowed. * Returning to work will depend on the type of procedure and the results. Your doctor will discuss this with you. CALL YOUR DOCTOR FOR ANY OF THE FOLLOWING: *If bleeding from the puncture site occurs- Apply gentle pressure to site with clean cloth and call your doctor or EMS. * If a knot or lump forms under the skin, increases in size, or causes pain. * If bruising appears to be worsening or moving further down your leg instead of disappearing. * Temperature above 101 F. CARE OF YOUR GROIN INCISION; * Bruising or purple discoloration of the skin near the puncture site is common. * You may shower only, no bathtub bathing for 5 days. Be careful to avoid slipping as your leg may feel stiff. * If a closure device was used on your femoral artery, please see the attached guide regarding care of the device and your leg. * Leave dressing on FOR 24 hours. CARE OF YOUR WRIST INCISION; * Bruising or purple discoloration of the skin near the puncture site is common. * You may shower. * DO NOT submerge wrist. * Leave dressing on FOR 24 hours. LOY JIMENEZ MD Sep 24, 2020 12:29 pm
[2020-09-24] MEDS ORDERED: PATIENT MAY USE OWN MEDS, ALL PO SCH (12:30)
[2020-09-24] MEDS ORDERED: NS IV 1000 ML 1,000 ML IV SCH (12:30)
--- NOTE | 2020-09-24 12:32 | Cardiac Cath Report ---
Cardiac Cath Report Physician (s)/Harbor Engineer (s) Physician LOY SHIRLEY MD Pre-Procedure Diagnosis Pre-Procedure Diagnosis: Coronary artery disease, non-ST elevation [facility] Post-Procedure Note Procedure Start Date: Sep 24, 2020 Name of Procedure: Left heart catheterization Vein graft angiogram WAGNER angiogram Findings/Procedure Note PROCEDURE NOTE: 65-year-old gentleman with a history of coronary artery disease, CABG, had an abnormal stress test, scheduled for cardiac catheterization possible PTCA After explaining the procedure to the patient, all pros and cons were explained, all questions were answered. The patient signed the consent and then he was placed on the cardiac catheterization laboratory. Groin was prepped SL fashion local anesthesia was used. Sheath placed in the right femoral artery. Karen right and left catheter were used to access the coronary system.Vein Graft evaluated. WAGNER evaluated. Pigtail was used to access the left ventricular cavity. Left ventriculogram was not done pressure was measured I had difficulty advancing the catheter through the iliac artery, pigtail catheter was placed above the bifurcation abdominal aortogram and evaluation of the bifurcation was done At the end of the procedure the sheath was removed. Closure device was deployed FINDINGS: Hemodynamics LV 85/16, end-diastolic pressure of 16 Aorta 86/54 mean of 61 ANATOMY: Left Main is free of obstructive disease Left Anterior Descending has subtotal occlusion at the ostium, WAGNER to LAD is patent, vein graft to diagonal is patent Left Circumflex has mild proximal disease nonobstructive disease Right Coronary Artery nondominant artery with mild disease WAGNER to LAD is patent with good flow distally Vein Graft to diagonal artery is patent with good flow distally LV Gram was not done, pressure was measured Aorta evaluation with abdominal aortic angiogram and evaluation of the bifurcation which showed right common iliac aneurysm, no dissection CONCLUSION: 1. Patent WAGNER to LAD and vein graft to diagonal artery with severe ostial LAD stenosis otherwise mild coronary artery disease 2. Normal left ventricular end-diastolic pressure 3. 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
== END 2020-09-24 17:15 | disposition home or self-care (01) ==
LOC: CATH 17:15
PROVIDERS: ATTEND Internal Medicine Cardiovascular Disease
DX: I25.10 Atherosclerotic heart disease of native coronary artery without angina pectoris (principal); I10 Essential (primary) hypertension; I11.0 Hypertensive heart disease with heart failure; I50.9 Heart failure, unspecified; E78.2 Mixed hyperlipidemia; I65.23 Occlusion and stenosis of bilateral carotid arteries; Z79.1 Long term (current) use of non-steroidal anti-inflammatories (NSAID); Z79.82 Long term (current) use of aspirin; Z79.899 Other long term (current) drug therapy; Z87.891 Personal history of nicotine dependence
CPT/HCPCS: 71045; 80053; 80061; 85027; 85610; 85730; 87081; 93459; C1760; C1894; 36415